=== PATIENT | female | born 1940 | race African-American/Black ===

== ENCOUNTER → 2016-12-03 | Outpatient (CLI) | payer OTHER ==
[2016-02-20 22:51] VITALS: BP 142/74
[~2016-12-03] MED LIST: BARIUM SULFATE 340 GM SUSPENSION. PO ONE; BARIUM SULFATE 60% 355 ML SUSP PO ONE; SIMETHICONE/SOD BICARB/CITRIC ACID PACKET. PO ONE
--- NOTE | 2016-12-03 10:12 | RAD ---
Esophagram, 12/03/2016: History: Dysphasia The swallowing mechanism is intact. The esophageal peristalsis is normal. There is no obstruction to flow of the barium through the cervical or thoracic esophagus. No hiatal hernia or gastroesophageal reflux was demonstrated. 2 minutes of fluoroscopy time was utilized. 8 static and dynamic fluoroscopic spot images were recorded. IMPRESSION: No significant abnormality is detected
== END | disposition home or self-care (01) ==
LOC: RAD 08:45
PROVIDERS: ATTEND Family Medicine
DX: R13.12 Dysphagia, oropharyngeal phase (principal); R47.02 Dysphasia
CPT/HCPCS: 74220

== ENCOUNTER 2017-12-16 17:41 | Emergency (ER) | payer OTHER ==
[~2017-12-16] VITALS: Ht 152.4 cm; Wt 65.3 kg
[2017-12-16 18:12] LABS: BASO % 1 % (0-3); EOS # 0.2 x10^3/uL (0.0-0.7); EOS % 3 % (0-3); HEMATOCRIT 37.4 % (36.0-47.0); HEMOGLOBIN 12.7 g/dL (12.0-15.5); LYMPH # 1.9 x10^3/uL (1.0-4.8); LYMPH % 29 % (24-48); MEAN CORPUSCULAR HEMOGLOBIN 31 pg (25-35); MEAN CORPUSCULAR HGB CONC 34 g/dL (31-37); MEAN CORPUSCULAR VOLUME 92 fL (79-100); MONO # 0.5 x10^3/uL (0.0-1.1); MONO % 8 % (0-9); NEUT # 3.9 x10^3uL (1.8-7.7); NEUT % 60 % (31-73); PLATELET COUNT 220 x10^3/uL (140-400); RED BLOOD COUNT 4.05 x10^6/uL (3.50-5.40); RED CELL DISTRIBUTION WIDTH 14.1 % (11.5-14.5); WHITE BLOOD COUNT 6.4 x10^3/uL (4.0-11.0)
[2017-12-16] MEDS ORDERED: ASPIRIN CHEWABLE 81 MG TABLET. PO ONE (18:15)
[2017-12-16] MEDS ORDERED: ASPIRIN 325 MG TABLET PO ONE (18:15)
--- NOTE | 2017-12-16 18:15 | PHYS DOC ---
Past Medical History Past Medical History: High Cholesterol, Hypertension, Kidney Stone, Other Additional Past Medical Histor: narcolepsy Past Surgical History: Cholecystectomy, Hysterectomy, Other Additional Past Surgical Histo: jaw Alcohol Use: Occasionally Drug Use: None Adult General Chief Complaint Chief Complaint: CHEST PAIN HPI HPI Patient is a 77 year old AA female who presents to the ER with complaints of intermittent sharp chest pain that radiates from her bra line through to her chest for the last 3 days. PT denies any shortness of breath, nausea, vomiting, diaphoresis, dizziness, or palpitations. She describes the pain as sharp and stabbing and short in duration. She denies fever or cough. At this time she denies any chest pain. She took two baby aspirin at 1600 this evening prior to arrival. Review of Systems Review of Systems Constitutional: Denies fever or chills [] HENT: Denies nasal congestion or sore throat [] Respiratory: Denies cough or shortness of breath [] Cardiovascular: See HPI GI: Denies abdominal pain, nausea, vomiting, or diarrhea [] Musculoskeletal: Denies joint pain[] Integument: Denies rash or skin lesions [] Neurologic: Denies headache, focal weakness or sensory changes [] All other systems were reviewed and found to be within normal limits, except as documented in this note. Current Medications Current Medications Current Medications Medications (Trade) Dose Ordered Sig/Narayan Start Time Stop Time Status Last Admin Dose Admin Aspirin (Scarlett Aspirin) 162 mg 1X ONCE 12/16/17 18:15 12/16/17 18:16 Cancel Aspirin (Children'S Aspirin) 162 mg 1X ONCE 12/16/17 18:15 12/16/17 18:19 DC 12/16/17 18:15 162 MG Allergies Allergies Allergies Coded Allergies Type Severity Reaction Last Updated Verified lidocaine Allergy Unknown Swelling 02/20/16 Yes procaine Allergy Unknown Swelling 02/20/16 Yes Physical Exam Physical Exam Constitutional: Well developed, well nourished, no acute distress, non-toxic appearance. [] HENT: Normocephalic, atraumatic, bilateral external ears normal, nose normal. [] Eyes: PERRLA, conjunctiva normal, no discharge. [] Cardiovascular:Heart rate regular rhythm, no murmur [] Lungs & Thorax: Bilateral breath sounds clear to auscultation [] Abdomen: soft, no tenderness, no masses, no pulsatile masses. [] Skin: Warm, dry, no erythema, no rash. [] Back: No tenderness, no CVA tenderness. [] Extremities: No tenderness, no cyanosis, no clubbing, ROM intact, no edema. [] Neurologic: Alert and oriented X 3, normal motor function, normal sensory function, no focal deficits noted. [] Psychologic: Affect normal, judgement normal, mood normal. [] Current Patient Data Vital Signs Vital Signs Date Time Temp Pulse Resp B/P (MAP) Pulse Ox O2 Delivery O2 Flow Rate FiO2 12/16/17 18:30 63 18 133/86 (102) 99 12/16/17 17:53 97.4 Room Air 97.4 Lab Values Laboratory Tests Test 12/16/17 18:03 12/16/17 18:55 White Blood Count 6.4 x10^3/uL (4.0-11.0) Red Blood Count 4.05 x10^6/uL (3.50-5.40) Hemoglobin 12.7 g/dL (12.0-15.5) Hematocrit 37.4 % (36.0-47.0) Mean Corpuscular Volume 92 fL (79-100) Mean Corpuscular Hemoglobin 31 pg (25-35) Mean Corpuscular Hemoglobin Concent 34 g/dL (31-37) Red Cell Distribution Width 14.1 % (11.5-14.5) Platelet Count 220 x10^3/uL (140-400) Neutrophils (%) (Auto) 60 % (31-73) Lymphocytes (%) (Auto) 29 % (24-48) Monocytes (%) (Auto) 8 % (0-9) Eosinophils (%) (Auto) 3 % (0-3) Basophils (%) (Auto) 1 % (0-3) Neutrophils # (Auto) 3.9 x10^3uL (1.8-7.7) Lymphocytes # (Auto) 1.9 x10^3/uL (1.0-4.8) Monocytes # (Auto) 0.5 x10^3/uL (0.0-1.1) Eosinophils # (Auto) 0.2 x10^3/uL (0.0-0.7) Basophils # (Auto) 0.0 x10^3/uL (0.0-0.2) Prothrombin Time 12.4 SEC (11.7-14.0) Prothrombin Time INR 1.0 (0.8-1.1) Sodium Level 142 mmol/L (136-145) Potassium Level 4.0 mmol/L (3.5-5.1) Chloride Level 104 mmol/L (98-107) Carbon Dioxide Level 25 mmol/L (21-32) Anion Gap 13 (6-14) Blood Urea Nitrogen 27 mg/dL (7-20) H Creatinine 0.7 mg/dL (0.6-1.0) Estimated GFR (Cockcroft-Gault) 98.4 BUN/Creatinine Ratio 39 (6-20) H Glucose Level 92 mg/dL (70-99) Calcium Level 9.7 mg/dL (8.5-10.1) Total Bilirubin 0.1 mg/dL (0.2-1.0) L Aspartate Amino Transferase (AST) 22 U/L (15-37) Alanine Aminotransferase (ALT) 19 U/L (14-59) Alkaline Phosphatase 90 U/L (46-116) Troponin I Quantitative < 0.017 ng/mL (0.000-0.055) GE-Yor-F-Type Natriuretic Peptide 96 pg/mL (0-449) Total Protein 7.8 g/dL (6.4-8.2) Albumin 3.5 g/dL (3.4-5.0) Albumin/Globulin Ratio 0.8 (1.0-1.7) L Urine Collection Type Unknown Urine Color Yellow Urine Clarity Clear Urine pH 5.5 Urine Specific [place] 1.015 Urine Protein Negative mg/dL (NEG-TRACE) Urine Glucose (UA) Negative mg/dL (NEG) Urine Ketones (Stick) Negative mg/dL (NEG) Urine Blood Trace (NEG) Urine Nitrite Negative (NEG) Urine Bilirubin Negative (NEG) Urine Urobilinogen Dipstick 0.2 mg/dL (0.2 mg/dL) Urine Leukocyte Esterase Moderate (NEG) Urine RBC Occ /HPF (0-2) Urine WBC 11-20 /HPF (0-4) Urine Squamous Epithelial Cells Few /LPF Urine Transitional Epithelial Cells Occ /LPF Urine Bacteria Few /HPF (0-FEW) Urine Mucus Slight /LPF Laboratory Tests 12/16/17 18:03 Laboratory Tests 12/16/17 18:03 EKG EKG 1749- EKG SR no STEMI read by Dr. Garza[] Radiology/Procedures Radiology/Procedures PROCEDURE: CHEST PA & LATERAL EXAM: Chest, 2 views. HISTORY: Chest pain. COMPARISON: None. FINDINGS: 2 views of the chest are obtained. 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 There is no infiltrate, pleural effusion or pneumothorax. The heart is normal in size. There is suspected right middle and bilateral lower lobe atelectasis. IMPRESSION: Right middle and bilateral lower lobe atelectasis. [] Course & Med Decision Making Course & Med Decision Making Pertinent Labs and Imaging studies reviewed. (See chart for details) Dx: non-specific chest pain, UTI Ddx: ACS, STEMI, back strain, pneumonia Labs revealed normal troponin and CBC, UA concerning for UTI. CXR negative for any acute findings. EKG SR no STEMI. Prescription was written for Keflex, pt encouraged to increase clear fluids and avoid bladder irritants. Follow up with PCP in 1-2 days, return to ER for worsening sx. Patient verbalized an understanding of home care, medications, follow-up, and return to ED instructions and was in agreement with the plan of care. [] Dragon Disclaimer Dragon Disclaimer This electronic medical record was generated, in whole or in part, using a voice recognition dictation system. Departure Departure Impression: Primary Impression: Urinary tract infection Additional Impression: Nonspecific chest pain Disposition: HOME, SELF-CARE Condition: STABLE Referrals: ANKIT CARRILLO (PCP) Patient Instructions: Chest Pain (Nonspecific)-Brief, Urinary Tract Infection, [id number] Additional Instructions: Fill the prescription and use as directed. Increase clear fluids and avoid bladder irritants such as caffeine, carbonation, and spicy foods. Follow up with your primary care doctor in 1-2 days, return to the ER if symptoms worsen. Scripts Cephalexin (CEPHALEXIN) 500 Mg Tablet 1 TAB PO BID for 7 Days, #14 TAB 0 Refills Prov: KHALIDA CLEMENT APRN 12/16/17 Problem Qualifiers Primary Impression: Urinary tract infection Urinary tract infection type: site unspecified Hematuria presence: without hematuria Qualified Codes: N39.0 - Urinary tract infection, site not specified KHALIDA CLEMENT [employer] AGENT Dec 16, 2017 18:15
[2017-12-16 18:21] LABS: CALCIUM 9.7 mg/dL (8.5-10.1); CREATININE 0.7 mg/dL (0.6-1.0); GFR 98.4; PROTHROMBIN TIME PATIENT 12.4 SEC (11.7-14.0)
[2017-12-16 18:27] LABS: ALBUMIN 3.5 g/dL (3.4-5.0); ALBUMIN/GLOBULIN RATIO 0.8 (1.0-1.7); TOTAL BILIRUBIN 0.1 mg/dL (0.2-1.0); TOTAL PROTEIN 7.8 g/dL (6.4-8.2)
[2017-12-16 18:30] VITALS: BP 133/86
--- NOTE | 2017-12-16 18:38 | RAD ---
EXAM: Chest, 2 views. HISTORY: Chest pain. COMPARISON: None. FINDINGS: 2 views of the chest are obtained. There is right infrahilar opacity likely due to prominent pulmonary vessels shadows and overlying painter set artifact. There is no infiltrate, pleural effusion or pneumothorax. The heart is normal in size. There is suspected right middle and bilateral lower lobe atelectasis. IMPRESSION: Right middle and bilateral lower lobe atelectasis. Electronically signed by: Lianet Echavarria MD (12/16/2017 6:34 PM) [facility]
[2017-12-16 19:05] LABS: BILIRUBIN,URINE NEGATIVE (NEG); CLARITY,URINE CLEAR; COLOR,URINE YELLOW; NITRITE,URINE NEGATIVE (NEG); PH,URINE 5.5; PROTEIN,URINE NEGATIVE (NEG-TRACE); UROBILINOGEN,URINE 0.2 mg/dL (0.2 mg/dL)
[2017-12-16 19:09] LABS: BACTERIA,URINE FEW /HPF (0-FEW); RBC,URINE OCC /HPF (0-2); SQUAMOUS EPITHELIAL CELL,UR FEW /LPF
[2017-12-16] MEDS ORDERED: CEPH500T PO (19:57)
--- NOTE | 2017-12-17 01:51 | EKG ---
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
== END 2017-12-16 20:13 | disposition home or self-care (01) ==
LOC: ER 17:41
DX: R07.89 Other chest pain (principal); N39.0 Urinary tract infection, site not specified; E78.00 Pure hypercholesterolemia, unspecified; I10 Essential (primary) hypertension; Z87.442 Personal history of urinary calculi; Z90.49 Acquired absence of other specified parts of digestive tract; Z90.710 Acquired absence of both cervix and uterus; Z88.4 Allergy status to anesthetic agent
CPT/HCPCS: 36415; 71046; 80053; 81001; 83880; 84484; 85025; 85610; 93005; 99285-25

== ENCOUNTER → 2018-12-29 | Outpatient (CLI) | payer OTHER ==
[~2018-12-29] MED LIST changes: -BARIUM SULFATE 340 GM SUSPENSION. PO ONE; -BARIUM SULFATE 60% 355 ML SUSP PO ONE; +CEPH500T PO; -SIMETHICONE/SOD BICARB/CITRIC ACID PACKET. PO ONE
--- NOTE | 2018-12-29 12:16 | RAD ---
EXAM: Abdomen sonogram. HISTORY: Epigastric pain. TECHNIQUE: Sonographic imaging of the abdomen was performed. COMPARISON: 12/15/2018. FINDINGS: The liver is normal in size. No focal hepatic lesion is seen. There is common bile duct dilatation, measuring 12 mm. The gallbladder is surgically absent. The kidneys are predominantly obscured due to bowel gas. The visualized renal parenchyma appears echogenic. The pancreas, spleen, aorta and vena cava are unremarkable. IMPRESSION: 1. Biliary ductal dilatation. This can be due to reservoir effect status post cholecystectomy. 2. Obscured kidneys due to bowel gas. There is suggestion of echogenic renal parenchyma, possibly due to imaging technique or medical renal disease. Electronically signed by: Lianet Echavarria MD (12/29/2018 12:13 PM) [place] [id number]
== END | disposition home or self-care (01) ==
LOC: US 10:05
PROVIDERS: ATTEND Family Medicine
DX: K83.8 Other specified diseases of biliary tract (principal); Z90.49 Acquired absence of other specified parts of digestive tract
CPT/HCPCS: 76700

== ENCOUNTER 2019-01-20 20:19 | Emergency (ER) | payer OTHER ==
[~2019-01-20] VITALS: Ht 152.4 cm; Wt 65.3 kg
[2019-01-20 21:17] LABS: BASO % 0 % (0-3); EOS # 0.1 x10^3/uL (0.0-0.7); EOS % 2 % (0-3); HEMATOCRIT 38.9 % (36.0-47.0); HEMOGLOBIN 13.1 g/dL (12.0-15.5); LYMPH # 1.7 x10^3/uL (1.0-4.8); LYMPH % 30 % (24-48); MEAN CORPUSCULAR HEMOGLOBIN 31 pg (25-35); MEAN CORPUSCULAR HGB CONC 34 g/dL (31-37); MEAN CORPUSCULAR VOLUME 92 fL (79-100); MONO # 0.5 x10^3/uL (0.0-1.1); MONO % 8 % (0-9); NEUT # 3.4 x10^3/uL (1.8-7.7); NEUT % 60 % (31-73); PLATELET COUNT 216 x10^3/uL (140-400); RED BLOOD COUNT 4.24 x10^6/uL (3.50-5.40); RED CELL DISTRIBUTION WIDTH 14.3 % (11.5-14.5); WHITE BLOOD COUNT 5.7 x10^3/uL (4.0-11.0)
[2019-01-20 21:19] LABS: BILIRUBIN,URINE NEGATIVE (NEG); CLARITY,URINE CLEAR; COLOR,URINE YELLOW; NITRITE,URINE NEGATIVE (NEG); PH,URINE 5.5; PROTEIN,URINE NEGATIVE (NEG-TRACE)
[2019-01-20 21:25] LABS: BACTERIA,URINE 0 /HPF (0-FEW); RBC,URINE OCC /HPF (0-2); SQUAMOUS EPITHELIAL CELL,UR MOD /LPF
[2019-01-20 21:42] LABS: CALCIUM 9.3 mg/dL (8.5-10.1); GFR 65.1; POTASSIUM 4.2 mmol/L (3.5-5.1)
[2019-01-20 21:48] LABS: ALBUMIN 3.5 g/dL (3.4-5.0); ALBUMIN/GLOBULIN RATIO 0.8 (1.0-1.7); TOTAL BILIRUBIN 0.3 mg/dL (0.2-1.0); TOTAL PROTEIN 7.8 g/dL (6.4-8.2)
[2019-01-20] MEDS ORDERED: CONTRAST GIVEN. MC PRN (22:30)
[2019-01-20] MEDS ORDERED: IOHEXOL 300 MG/ML 100ML VIAL. IV ONE (22:30)
--- NOTE | 2019-01-20 22:46 | RAD ---
Study: CT abdomen/pelvis with intravenous contrast Indication: Abdominal pain, cramping and distention. Comparison: No prior CT is available for review. Technique: Helical CT imaging performed of the abdomen and pelvis after the intravenous administration of 75 cc Omnipaque 350 contrast. Sagittal and coronal reformats were obtained. One or more of the following individualized dose reduction techniques were utilized for this examination: 1. Automated exposure control 2. Adjustment of the mA and/or kV according to patient size 3. Use of iterative reconstruction technique. Findings: Mild basilar volume loss. Eventration of the right hemidiaphragm. Unremarkable visualized heart. Unremarkable liver. The gallbladder is either absent or collapsed. Mild common duct and central intrahepatic ductal dilatation. No stone or mass seen at the pancreatic head. The pancreas is unremarkable. The main pancreatic duct measures at the upper limits of normal for size. Unremarkable spleen and adrenal glands. Small low-attenuation focus within the left kidney, image 36 series 2, is not well characterized due to size but most likely represents a cyst. No hydroureteronephrosis. Mostly collapsed urinary bladder. The uterus is not well-visualized and may be absent. No adnexal mass is seen. Mild colonic diverticulosis without diverticulitis. The appendix is not well seen but there are no findings at the expected location to suggest appendicitis. Nonobstructed small bowel. Gastric distention with ingested material. Mild atheromatous plaque throughout the aorta. No aneurysmal dilatation. Circumaortic left renal veins incidentally noted. No significant volume free pelvic fluid. No free air. Multifocal degenerative changes throughout the pelvis. Degenerative changes scattered throughout the visualized spinal column with varying degrees of central canal and neural foraminal encroachment. Impression: 1. No acute abnormality seen throughout the abdomen or pelvis or no bowel obstruction. 2. Small low-attenuation focus within the left kidney that is too small to characterize and most likely represents a cyst however consider eventual nonemergent renal sonography to better characterize. 3. Additional chronic findings as detailed above. Electronically signed by: ASHLI FERGUSON MD (01/20/2019 10:43 PM) [facility]
--- NOTE | 2019-01-20 23:03 | PHYS DOC ---
Past Medical History Past Medical History: High Cholesterol, Hypertension, Kidney Stone, Other Additional Past Medical Histor: narcolepsy Past Surgical History: Cholecystectomy, Hysterectomy, Other Additional Past Surgical Histo: jaw Alcohol Use: Occasionally Drug Use: None Adult General Chief Complaint Chief Complaint: ABDOMINAL PAIN HPI HPI Patient is a 78 year old E male who presented to ER today for evaluation of abdominal cramping pain. Patient feel like something is moving inside her abdomen. She denies any nausea or vomiting. The symptoms have been going on for for about 2 days. Patient was not able to sleep so she came in here for evaluation. Patient denies any chest pain, no trouble breathing, no cough or fever. All other ROS is negative unless otherwise noted in HPI Review of Systems Review of Systems See above Current Medications Current Medications Current Medications Medications (Trade) Dose Ordered Sig/Narayan Start Time Stop Time Status Last Admin Dose Admin Info (CONTRAST GIVEN -- Rx MONITORING) 1 each PRN DAILY PRN 01/20/19 22:30 01/21/19 01:14 DC Iohexol (Omnipaque 300 Mg/ml) 75 ml 1X ONCE 01/20/19 22:30 01/20/19 22:31 DC 01/20/19 22:29 75 ML Allergies Allergies Allergies Coded Allergies Type Severity Reaction Last Updated Verified lidocaine Allergy Unknown Swelling 02/20/16 Yes procaine Allergy Unknown Swelling 02/20/16 Yes Physical Exam Physical Exam See above Constitutional: Well developed, well nourished, no acute distress, non-toxic appearance. [] HENT: Normocephalic, atraumatic, bilateral external ears normal, oropharynx moist, no oral exudates, nose normal. [] Eyes: PERRLA, EOMI, conjunctiva normal, no discharge. [] Neck: Normal range of motion, no tenderness, supple, no stridor. [] Cardiovascular:Heart rate regular rhythm, no murmur [] Lungs & Thorax: Bilateral breath sounds clear to auscultation [] Abdomen: Bowel sounds normal, soft, no tenderness, no masses, no pulsatile masses. [] Skin: Warm, dry, no erythema, no rash. [] Back: No tenderness, no CVA tenderness. [] Extremities: No tenderness, no cyanosis, no clubbing, ROM intact, no edema. [] Neurologic: Alert and oriented X 3, normal motor function, normal sensory function, no focal deficits noted. [] Psychologic: Affect normal, judgement normal, mood normal. [] Current Patient Data Vital Signs Vital Signs Date Time Temp Pulse Resp B/P (MAP) Pulse Ox O2 Delivery O2 Flow Rate FiO2 01/21/19 00:30 78 16 122/74 (90) 100 Room Air 01/20/19 20:30 97.9 97.9 Lab Values Laboratory Tests Test 01/20/19 20:41 01/20/19 20:45 Urine Collection Type Unknown Urine Color Yellow Urine Clarity Clear Urine pH 5.5 Urine Specific [place] 1.025 Urine Protein Negative mg/dL (NEG-TRACE) Urine Glucose (UA) Negative mg/dL (NEG) Urine Ketones (Stick) Negative mg/dL (NEG) Urine Blood Negative (NEG) Urine Nitrite Negative (NEG) Urine Bilirubin Negative (NEG) Urine Urobilinogen Dipstick 1.0 mg/dL (0.2 mg/dL) Urine Leukocyte Esterase Trace (NEG) Urine RBC Occ /HPF (0-2) Urine WBC 5-10 /HPF (0-4) Urine Squamous Epithelial Cells Mod /LPF Urine Bacteria 0 /HPF (0-FEW) Urine Mucus Marked /LPF White Blood Count 5.7 x10^3/uL (4.0-11.0) Red Blood Count 4.24 x10^6/uL (3.50-5.40) Hemoglobin 13.1 g/dL (12.0-15.5) Hematocrit 38.9 % (36.0-47.0) Mean Corpuscular Volume 92 fL (79-100) Mean Corpuscular Hemoglobin 31 pg (25-35) Mean Corpuscular Hemoglobin Concent 34 g/dL (31-37) Red Cell Distribution Width 14.3 % (11.5-14.5) Platelet Count 216 x10^3/uL (140-400) Neutrophils (%) (Auto) 60 % (31-73) Lymphocytes (%) (Auto) 30 % (24-48) Monocytes (%) (Auto) 8 % (0-9) Eosinophils (%) (Auto) 2 % (0-3) Basophils (%) (Auto) 0 % (0-3) Neutrophils # (Auto) 3.4 x10^3/uL (1.8-7.7) Lymphocytes # (Auto) 1.7 x10^3/uL (1.0-4.8) Monocytes # (Auto) 0.5 x10^3/uL (0.0-1.1) Eosinophils # (Auto) 0.1 x10^3/uL (0.0-0.7) Basophils # (Auto) 0.0 x10^3/uL (0.0-0.2) Prothrombin Time 13.0 SEC (11.7-14.0) Prothrombin Time INR 1.0 (0.8-1.1) Activated Partial Thromboplast Time 36 SEC (24-38) Sodium Level 142 mmol/L (136-145) Potassium Level 4.2 mmol/L (3.5-5.1) Chloride Level 104 mmol/L (98-107) Carbon Dioxide Level 28 mmol/L (21-32) Anion Gap 10 (6-14) Blood Urea Nitrogen 23 mg/dL (7-20) H Creatinine 1.0 mg/dL (0.6-1.0) Estimated GFR (Cockcroft-Gault) 65.1 BUN/Creatinine Ratio 23 (6-20) H Glucose Level 102 mg/dL (70-99) H Calcium Level 9.3 mg/dL (8.5-10.1) Total Bilirubin 0.3 mg/dL (0.2-1.0) Aspartate Amino Transferase (AST) 18 U/L (15-37) Alanine Aminotransferase (ALT) 12 U/L (14-59) L Alkaline Phosphatase 91 U/L (46-116) Total Protein 7.8 g/dL (6.4-8.2) Albumin 3.5 g/dL (3.4-5.0) Albumin/Globulin Ratio 0.8 (1.0-1.7) L Lipase 170 U/L (73-393) Laboratory Tests 01/20/19 20:45 Laboratory Tests 01/20/19 20:45 EKG EKG [] Radiology/Procedures Radiology/Procedures [][facility] [address] [place], [place] [id number] IMAGING REPORT Signed PATIENT: AVILA PATTON ACCOUNT: [id number] : 1940 LOCATION: ER AGE: 78 SEX: F EXAM STATUS: REG ER ORD. PHYSICIAN: EVELYN BRITT DO REASON: ABDOMINAL PAIN, CRAMPING, DISTENTION PROCEDURE: CT ABD PELV W/ IV CONTRST ONLY Study: CT abdomen/pelvis with intravenous contrast Indication: Abdominal pain, cramping and distention. Comparison: No prior CT is available for review. Technique: Helical CT imaging performed of the abdomen and pelvis after the intravenous administration of 75 cc Omnipaque 350 contrast. Sagittal and coronal reformats were obtained. One or more of the following individualized dose reduction techniques were utilized for this examination: 1. Automated exposure control 2. Adjustment of the mA and/or kV according to patient size 3. Use of iterative reconstruction technique. Findings: Mild basilar volume loss. Eventration of the right hemidiaphragm. Unremarkable visualized heart. Unremarkable liver. The gallbladder is either absent or collapsed. Mild common duct and central intrahepatic ductal dilatation. No stone or mass seen at the pancreatic head. The pancreas is unremarkable. The main pancreatic duct measures at the upper limits of normal for size. Unremarkable spleen and adrenal glands. Small low-attenuation focus within the left kidney, image 36 series 2, is not well characterized due to size but most likely represents a cyst. No hydroureteronephrosis. Mostly collapsed urinary bladder. The uterus is not well-visualized and may be absent. No adnexal mass is seen. Mild colonic diverticulosis without diverticulitis. The appendix is not well seen but there are no findings at the expected location to suggest appendicitis. Nonobstructed small bowel. Gastric distention with ingested material. Mild atheromatous plaque throughout the aorta. No aneurysmal dilatation. Circumaortic left renal veins incidentally noted. No significant volume free pelvic fluid. No free air. Multifocal degenerative changes throughout the pelvis. Degenerative changes scattered throughout the visualized spinal column with varying degrees of central canal and neural foraminal encroachment. Impression: 1. No acute abnormality seen throughout the abdomen or pelvis or no bowel obstruction. 2. Small low-attenuation focus within the left kidney that is too small to characterize and most likely represents a cyst however consider eventual nonemergent renal sonography to better characterize. 3. Additional chronic findings as detailed above. Electronically signed by: ASHLI FERGUSON MD (01/20/2019 10:43 PM) [id number] DICTATED and SIGNED BY: ASHLI FERGUSON MD DATE: 01/20/19 2243 Course & Med Decision Making Course & Med Decision Making Pertinent Labs and Imaging studies reviewed. (See chart for details) [] Dragon Disclaimer Dragon Disclaimer This electronic medical record was generated, in whole or in part, using a voice recognition dictation system. Departure Departure Impression: Primary Impression: Abdominal pain Disposition: HOME, SELF-CARE Condition: STABLE Referrals: ANKIT CARRILLO (PCP) FOLLOW UP WITH YOUR DOCTOR NEXT WEEK Patient Instructions: Abdominal Pain EVELYN BRITT DO Jan 20, 2019 23:03
[2019-01-21 00:30] VITALS: BP 122/74
== END 2019-01-21 00:35 | disposition home or self-care (01) ==
LOC: ER 20:19
DX: R10.30 Lower abdominal pain, unspecified (principal); E78.00 Pure hypercholesterolemia, unspecified; I10 Essential (primary) hypertension; Z87.442 Personal history of urinary calculi; Z90.710 Acquired absence of both cervix and uterus; Z90.49 Acquired absence of other specified parts of digestive tract; Z88.4 Allergy status to anesthetic agent
CPT/HCPCS: 36415; 74177; 80053; 81001; 83690; 85025; 85610; 85730; 87086; 99285; Q9967